=== PATIENT | male | born 1985 | race Caucasian/White ===

== ENCOUNTER 2016-10-20 14:30 | Emergency (ER) | payer SELFPAY ==
[~2016-10-20] VITALS: Ht 185.4 cm; Wt 85.8 kg
[2016-10-20] MEDS ORDERED: LIDOCAINE 1%, 20ML ONE (15:20)
[2016-10-20] MEDS ORDERED: BACITRACIN ZINC OINT 500U/GM, 0.9 GM ONE (16:13)
[2016-10-20 16:38] VITALS: BP 136/80
== END 2016-10-20 16:40 | disposition home or self-care (01) ==
LOC: ED 16:15
DX: S01.511A Laceration without foreign body of lip, initial encounter (principal); B00.9 Herpesviral infection, unspecified; F17.210 Nicotine dependence, cigarettes, uncomplicated; W19.XXXA Unspecified fall, initial encounter; Y93.89 Activity, other specified; Y92.410 Unspecified street and highway as the place of occurrence of the external cause; Y99.8 Other external cause status
CPT/HCPCS: 13131

== ENCOUNTER 2017-02-25 02:32 | Emergency (ER) | payer OTHER ==
[~2017-02-25] VITALS: Ht 188 cm; Wt 80.1 kg
[2017-02-25 02:33] VITALS: BP 118/81
[2017-02-25] MEDS ORDERED: DEXAMETHASONE 4 MG TABLET ONE (04:54)
[2017-02-25] MEDS ORDERED: ACETAMINOPHEN 500 MG TABLET ONE (04:55)
[2017-02-25] MEDS ORDERED: DEXAMETHASONE 4 MG TABLET PO ONE (05:00)
[2017-02-25] MEDS ORDERED: ACETAMINOPHEN 325 MG TABLET PO ONE (05:00)
[2017-02-25] MEDS ORDERED: BICILLIN-LA 1,200,000 UNITS/2 ML IM ONE (05:00)
== END 2017-02-25 05:36 | disposition home or self-care (01) ==
LOC: ED 05:26
DX: J02.0 Streptococcal pharyngitis (principal)
CPT/HCPCS: 96372; 99283; J0561

== ENCOUNTER 2018-04-29 20:31 | Emergency (ER) | payer SELFPAY ==
[~2018-04-29] VITALS: Ht 185.4 cm; Wt 82.0 kg
[2018-04-29 20:36] VITALS: BP 124/74
--- NOTE | 2018-04-29 21:27 | NUR ---
PT HERE FOR MULTIPLE SYMPTOMS. PT REPORTS HE "CANNOT TAKE IT ANYMORE AND NEEDS TO BE EVALUATED." PT REPORTING SYMPTOMS FROM HEAD TO TOE AND REPORTING MULTIPLE DIAGNOSIS. PA AT BEDSIDE FOR EVAL.
[2018-04-29] MEDS ORDERED: ACETAMINOPHEN 325 MG TABLET PO ONE (21:30)
[2018-04-29] MEDS ORDERED: ACETAMINOPHEN 325 MG TABLET ONE (21:36)
--- NOTE | 2018-04-29 22:12 | NUR ---
PT WAS MEDICATED FOR PAIN.
--- NOTE | 2018-04-29 22:12 | NUR ---
Patient/Caregiver given discharge instructions and they have confirmed that they understand the instructions. Patient ambulatory with steady gait.
== END 2018-04-29 22:20 | disposition home or self-care (01) ==
LOC: ED 22:14
DX: R05 Cough (principal)
CPT/HCPCS: 71046; 93005; 99283

== ENCOUNTER 2018-12-17 21:12 | Emergency (ER) | payer SELFPAY ==
[~2018-12-17] VITALS: Ht 185.4 cm; Wt 71.6 kg
[2018-12-17 21:16] VITALS: BP 131/77
--- NOTE | 2018-12-17 22:10 | NUR ---
pt called to room from lobby
--- NOTE | 2018-12-17 22:11 | NUR ---
not in lobby
--- NOTE | 2018-12-17 22:28 | NUR ---
not in lobby
== END 2018-12-17 22:33 | disposition left against medical advice (07) ==
LOC: ED 22:20
DX: M79.605 Pain in left leg (principal); V89.2XXA Person injured in unspecified motor-vehicle accident, traffic, initial encounter; Y93.89 Activity, other specified; Y92.410 Unspecified street and highway as the place of occurrence of the external cause; Y99.8 Other external cause status; Z53.21 Procedure and treatment not carried out due to patient leaving prior to being seen by health care provider